=== PATIENT | female | born 1965 | race Caucasian/White ===

== ENCOUNTER 2022-03-09 16:03 | Emergency (ER) | payer OTHER, SELFPAY ==
--- NOTE | 2022-03-09 16:12 | DI.RAD.S_ITS ---
PROCEDURE: XR FOOT RT MIN 3V INDICATIONS: dropped bird bath on foot; swollen and painful TECHNIQUE: 3 views of the foot were acquired. COMPARISON: None. FINDINGS: Bones: No fractures or dislocations. No suspicious bony lesions. Soft tissues: There is marked swelling of the dorsum of the forefoot. IMPRESSION: Dorsal soft tissue swelling. No acute fracture visualized. If pain persists, followup imaging in 5-7 days is recommended to exclude occult fracture. Dictated by: Sinai Piedra M.D. on 03/09/2022 at 16:52 Approved by: Sinai Piedra M.D. on 03/09/2022 at 16:52
[2022-03-09 16:15] VITALS: BP 127/65; PULSE 71; RESP 16; TEMP 36.7; O2SAT 98; BMI 33.8
--- NOTE | 2022-03-09 17:27 | ED.LOWEXIN ---
HPI - Extremity Injury (Lower) General Chief Complaint: Extremity Injury, Lower Stated Complaint: Dropped cement birdbath on rt foot Time Seen by Provider: 03/09/22 17:27 Source: patient Mode of arrival: Wheelchair History of Present Illness HPI Narrative: Patient is a 56-year-old female history of kidney donation presenting today with right foot pain. She was pulling out weeds when a cement bird feeder fell on top of her but. She is able to ambulate. Took Tylenol prior to arrival. No numbness or tingling. Related Data Allergies Allergy/AdvReac Type Severity Reaction Status Date / Time Sulfa (Sulfonamide Allergy Severe ITCHING Verified 03/09/22 16:41 Antibiotics) Review of Systems Review of Systems Narrative: GENERAL: Denies chills,fever HEENT: Denies throat pain RESPIRATORY: Denies dyspnea, cough, wheezing CARDIOVASCULAR: Denies chest pain, palpitations GASTROINTESTINAL: Denies nausea, vomiting MUSCULOSKELETAL: See HPI SKIN: No rash, no laceration, no pruritus NEUROLOGIC: Denies weakness, dizziness, headache, numbness 8 point review of systems is negative except for those stated above and HPI Patient History Social History Smoking Status: Never smoker Smoking Status: Never smoker Substance Use Type: does not use Exam Initial Vital Signs Initial Vital Signs: Vital Signs Temperature 98.0 F 03/09/22 16:15 Pulse Rate 71 03/09/22 16:15 Respiratory Rate 16 03/09/22 16:15 Blood Pressure 127/65 03/09/22 16:15 Pulse Oximetry 98 03/09/22 16:15 Oxygen Delivery Method 03/09/22 16:15 GENERAL: Pleasant alert 56-year-old female CARDIOVASCULAR: peripheral pulses in tact, cap refill <2 sec RESPIRATORY: No respiratory distress, speaks in full sentences without difficulty EXTREMITIES: Normal range of motion, no clubbing or edema. Neurovascularly intact Right foot significant dorsal swelling distal pedal pulse is a felt able to move toes NEUROLOGICAL: Cranial nerves II through XII grossly intact. Normal gait and speech. SKIN: Warm, dry, no petechiae, no rashes or lesions. Course Orders Ordered: ED Orders 03/09/22 16:12 XR foot RT min 3V Stat Vital Signs Vital signs: Vital Signs - 8 hr 03/09/22 16:15 03/09/22 17:30 Temperature 98.0 F Pulse Rate 71 74 Respiratory Rate 16 18 Blood Pressure 127/65 122/66 Pulse Oximetry 98 98 Oxygen Delivery Method Room Air Room Air MDM - Extremity Injury (Lower) Imaging Data Extremity x-ray #1: Radiologist's Impression: Signed Patient: Nikole Garcia MR#: [id number] : 1965 Acct:[id number] Age/Sex: 56 / F Date of Service: 03/09/22 Loc: ED Accession Number: [id number] ?? Procedure: XR foot RT min 3V Ordering Provider: Kelsie Wright D.O. PROCEDURE:? XR FOOT RT MIN 3V ? INDICATIONS:? dropped bird bath on foot; swollen and painful ? TECHNIQUE:? 3 views of the foot were acquired.? ? COMPARISON:? None. ? FINDINGS:? ? Bones:? No fractures or dislocations.? No suspicious bony lesions.? ? Soft tissues:? There is marked swelling of the dorsum of the forefoot. ? ? IMPRESSION:? Dorsal soft tissue swelling.? No acute fracture visualized. If pain persists, followup imaging in 5-7 days is recommended to exclude occult fracture. ? ? Dictated by: Sinai Piedra M.D. on 03/09/2022 at 16:52 ? ? Approved by: Sinai Piedra M.D. on 03/09/2022 at 16:52 ? [facility] Narrative Medical decision making narrative: Patient overall appears well. She is offered crutches but declines at this time. X-ray is negative. Supportive care only. Discharge Plan Departure Patient Disposition: Home Clinical Impression: Contusion of foot, right Instructions: DI for Contusion Activity Restrictions/Additional Instructions: *You have been diagnosed with right foot contusion *What to do: At this time elevate and ice. May ambulate as tolerated. May use crutches if needed. *Continue to take medications as directed Tylenol 1000 mg every 6 hours if needed for [id number] pain *Follow up with your primary care provider in 2-3 days or call [phone] *Return to ER if you should have increasing pain swelling unable to walk or any new, worsening or concerning symptoms Visit Report Forms: Patient Portal/API
[2022-03-09 17:30] VITALS: BP 122/66; PULSE 74; RESP 18; O2SAT 98
== END 2022-03-09 17:45 | disposition home or self-care (01) ==
PROVIDERS: Emergency Provider Emergency Medicine
DX: S90.31XA Contusion of right foot, initial encounter (principal); W22.8XXA Striking against or struck by other objects, initial encounter
CPT/HCPCS: 73630; 99281; 99283